=== PATIENT | male | born 2000 | race Two or more races ===

== ENCOUNTER 2022-04-16 12:26 | Day surgery (SDC) | payer OTHER ==
[2022-04-16 12:43] VITALS: BP 110/61; PULSE 64; RESP 16; TEMP 97.9
[2022-04-16] MEDS ORDERED: ALPRAZolam 0.5 MG TAB PO STA (12:47)
--- NOTE | 2022-04-16 14:08 | US ---
ULTRASOUND GUIDED LEFT NECK BIOPSY: CLINICAL HISTORY: Left neck lymph node FINDINGS: The procedure was explained to the patient. The risks, complications, benefits and alternatives were discussed and any questions were answered. Informed consent was obtained. Patient was placed supin e on the ultrasound table and prepped and draped in the usual sterile fashion. Utilizing a 18 gauge needle, three passes were made into the left neck lymph node. Patient was stable throughout the procedure. Pathology is pending. All elements of maximal barrier technique were utilized. IMPRESSION: 1. Successful ultrasound guided core biopsy left neck lymph node.
== END 2022-04-16 13:50 | disposition home or self-care (01) ==
LOC: RADPROMAIN 12:26
PROVIDERS: ATTEND Internal Medicine Hematology & Oncology
DX: R59.0 Localized enlarged lymph nodes (principal)
CPT/HCPCS: 38505; 76942; 88305; 88341; 88342

== ENCOUNTER 2022-05-01 06:20 | Day surgery (SDC) | payer OTHER ==
[~2022-05-01 06:20] MED LIST: LACTATED RINGERS 1,000 ML IV SCH; LIDOCAINE 1% (10MG/ML) FOR IV START INTRADERMA PRN
[2022-05-01 06:43] VITALS: RESP 16; TEMP 98.3
[2022-05-01] MEDS ORDERED: PROPOFOL 10 MG/ML 20 ML VIAL IV ONE (07:01)
[2022-05-01] MEDS ORDERED: LIDOCAINE 2% INJ 20 MG/ML SQ ONE (07:08)
[2022-05-01 08:17] VITALS: BP 108/59; PULSE 62
[2022-05-01 09:15] LABS: Basophils % (A) 1 %; Eosinophils # (A) 0.1 k/uL (0-0.7); Eosinophils % (A) 2 %; HCT 43.9 % (39.0-53.0); HGB 14.9 gm/dL (13.0-17.5); Lymphocytes # (A) 1.9 k/uL (1.0-4.8); Lymphocytes % (A) 39 %; MCH 30.6 pg (25.0-35.0); MCV 90.2 fL (80.0-100.0); Mean Platelet Volume 8.8; Monocytes # (A) 0.4 k/uL (0-1.0); Monocytes % (A) 7 %; Neutrophils # (A) 2.2 k/uL (1.3-7.7); Neutrophils % (A) 47 %; Platelet Count 261 k/uL (150-450); RBC 4.86 m/uL (4.30-5.90); RDW 12.6 % (11.5-15.5); Reticulocyte % 1.3 % (0.5-2.0); WBC 4.7 k/uL (3.8-10.6)
--- NOTE | 2022-05-01 19:37 | PCN ---
PROCEDURE NOTE PREOPERATIVE DIAGNOSIS: Hodgkin disease. POSTOPERATIVE DIAGNOSIS: Hodgkin disease. PROCEDURE: Bone marrow aspirate and biopsy. SITE: Right iliac crest. ANESTHESIA: Local with IV systemic sedation. DETAILS: Utilizing sterile technique, the skin overlying the iliac crest was prepared with Betadine and alcohol. After adequate sterile draping, local anesthesia with 1% lidocaine and systemic sedation, a size 11 4-inch [employer] needle was utilized to access the periosteum with ease. A total of 15 mL of aspirate as well as 3 cm bone core biopsies were obtained. The patient tolerated the procedure very well. There was no immediate procedure-related complication. Total blood loss less than 1 mL. Results pending. MMODL / IJN: [id number] /
== END 2022-05-01 08:28 | disposition home or self-care (01) ==
LOC: OR 06:20
PROVIDERS: ATTEND Internal Medicine Hematology & Oncology
DX: C81.91 Hodgkin lymphoma, unspecified, lymph nodes of head, face, and neck (principal); Z80.0 Family history of malignant neoplasm of digestive organs
CPT/HCPCS: 85025; 85045; 38222; J2001; J2704

== ENCOUNTER → 2022-05-04 | Outpatient (CLI) | payer OTHER ==
--- NOTE | 2022-05-04 11:40 | CA ---
Transthoracic Echo Report Name: James Watt Age: 21 Gender: M : 2000 Exam Date: 05/04/2022 10:46 Exam Location: [facility] Ht (in): 73 Wt (lb): 154 Ordering Physician: Narciso Rolle MD Attending/Referring Phys: Back Office Medical Assistant Meghana Flores RDCS Procedure CPT: Indications: Z01.818 Chemo Cardiac Hx: Technical Quality: Excellent Contrast 1: Total Dose (mL): Contrast 2: Total Dose (mL): MEASUREMENTS (Male / Female) Normal Values 2D ECHO LV Diastolic Diameter PLAX 4.8 cm 4.2 - 5.9 / 3.9 - 5.3 cm LV Systolic Diameter PLAX 2.9 cm IVS Diastolic Thickness 1.1 cm 0.6 - 1.0 / 0.6 - 0.9 cm LVPW Diastolic Thickness 1.0 cm 0.6 - 1.0 / 0.6 - 0.9 cm LV Relative Wall Thickness 0.4 RV Internal Dim ED PLAX 3.1 cm LA Systolic Diameter LX 3.2 cm 3.0 - 4.0 / 2.7 - 3.8 cm LA Volume 46.9 cm??? 18 - 58 / 22 - 52 cm??? M-MODE Aortic Root Diameter MM 3.0 cm MV E Point Septal Separation 0.6 cm AV Cusp Separation MM 2.5 cm DOPPLER AV Peak Velocity 115.4 cm/s AV Peak Gradient 5.3 mmHg MV Area PHT 2.8 cm??? Mitral E Point Velocity 106.8 cm/s Mitral A Point Velocity 64.8 cm/s Mitral E to A Ratio 1.6 MV Deceleration Time 275.7 ms MV E' Velocity 13.5 cm/s Mitral E to MV E' Ratio 7.9 TR Peak Velocity 242.3 cm/s TR Peak Gradient 23.5 mmHg Right Ventricular Systolic Press 28.5 mmHg FINDINGS Left Ventricle Left ventricular ejection fraction is estimated at 55-60 %. Left ventricular cavity size normal. Left ventricular wall thickness normal. Right Ventricle Normal right ventricular size and function. Right ventricular systolic pressure within normal limits. Right Atrium Normal right atrial size. Left Atrium Normal left atrial size. No evidence for an atrial septal defect. Mitral Valve Structurally normal mitral valve. No mitral stenosis, regurgitation or prolapse. Aortic Valve Trileaflet aortic valve. No aortic valve stenosis or regurgitation. Tricuspid Valve Trace to mild tricuspid regurgitation. Pulmonic Valve Mild pulmonic regurgitation. Pericardium Normal pericardium. No pericardial effusion. Aorta Normal size aortic root and proximal ascending aorta. CONCLUSIONS Normal LV size and systolic function. Trace mitral and mild tricuspid regurgitation. No pericardial effusion. No pulmonary hypertension Previewed by: Dr. Violetta Flores MD (Electronically Signed) Final Date: 04 May 2022 11:39
== END | disposition home or self-care (01) ==
LOC: RADECHMAIN 07:56
PROVIDERS: ATTEND Internal Medicine Hematology & Oncology
DX: Z01.818 Encounter for other preprocedural examination (principal); I07.1 Rheumatic tricuspid insufficiency
CPT/HCPCS: 93306; 78815; A9552

== ENCOUNTER 2022-06-09 19:09 | Emergency (ER) | payer OTHER ==
[2022-06-09 20:34] VITALS: RESP 18
--- NOTE | 2022-06-09 21:52 | XR ---
EXAMINATION TYPE: XR chest 2V DATE OF EXAM: 06/09/2022 9:46 PM COMPARISON: CT PET 05/04/2022 TECHNIQUE: XR chest 2V . CLINICAL INDICATION:Male, 21 years old with history of covid; history of lymphoma FINDINGS: Lungs/Pleura: There is no evidence of pleural effusion, focal consolidation, or pneumothorax. Pulmonary vascularity: Unremarkable. Heart/mediastinum: Cardiomediastinal silhouette is unremarkable. Musculoskeletal: No acute osseous pathology. Lines/Tubes: Osgbor-t-Ayhd projecting over the right hemithorax with distal tip at the cavoatrial junction. IMPRESSION: No acute cardiopulmonary disease/process.
--- NOTE | 2022-06-09 22:27 | ED ---
General Adult HPI - General Chief complaint: Fever Stated complaint: 100.8 Fever Time Seen by Provider: 06/09/22 21:12 Source: patient, RN notes reviewed, old records reviewed Mode of arrival: ambulatory Limitations: no limitations - History of Present Illness Initial comments: Patient is a 21-year-old male with past medical history remarkable for Hodgkin's lymphoma with a right chest Chemo-Port currently on chemotherapy with his last treatment on June 01 presents emergency Department complaining of febrile illness. Tested positive for Covid at home, and tested positive here in the department. Day 2 of symptoms. Patient's symptoms have been rhinorrhea, as well as a scratchy throat that has since resolved. Denies any cough. Denies chest pain. Denies nausea, vomiting, abdominal pain, diarrhea. Denies any ear pain. Endorses fatigue, generalized malaise. No other complaints at this time. Spoke with his oncologist, Dr. Munroe's office who instructed them to come here for further evaluation. Patient has been using Tylenol at home for fever control. T-max he states was 101F at home. Last took Tylenol at approximate 6 PM which was 4-1/2 hours ago. Presents for further evaluation at this time. Was not vaccinated for Covid 19. Unknown sick contact. - Related Data Home Medications Medication Instructions Recorded Confirmed No Known Home Medications 03/26/22 06/01/22 Allergies Allergy/AdvReac Type Severity Reaction Status Date / Time No Known Allergies Allergy Verified 06/09/22 20:34 Review of Systems ROS Statement: Those systems with pertinent positive or pertinent negative responses have been documented in the HPI. Review of Systems: CONST: Endorses fever EYES: Denies blurry vision ENT: Endorses nasal congestion C/V: Denies Chest pain RESP: Denies shortness of breath GI: Denies abdominal pain : Denies dysuria SKIN: Denies rash. MSK: Denies joint pain. NEURO: Denies headache ROS Other: All systems not noted in ROS Statement are negative. Past Medical History Past Medical History: Cancer Additional Past Medical History / Comment(s): palpable enlarged lymph node left side of neck, recent dx. Hodgkin's History of Any Multi-Drug Resistant Organisms: None Reported Past Surgical History: Tonsillectomy Past Anesthesia/Blood Transfusion Reactions: No Reported Reaction Past Psychological History: No Psychological Hx Reported Smoking Status: Never smoker Past Alcohol Use History: Occasional Past Drug Use History: Marijuana - Past Family History Father Additional Family Medical History / Comment(s): grandfather had throat CA General Exam - General Exam Comments Initial Comments: General: Appears in no acute distress. Currently afebrile. HEAD: Normal with no signs of head trauma. EYES: PERRLA, EOMI, conjunctiva normal, no discharge. ENT: Hearing grossly intact, normal oropharynx. No exudates or erythema of the posterior oropharynx. RESPIRATORY: Clear breath sounds bilaterally. No wheezes, rales, or rhonchi. No increased work of breathing. No hypoxia. C/V: Regular rate and rhythm. S1 and S2 auscultated, no edema, peripheral pulses 2+ and intact throughout. Right chest Chemo-Port. ABD: Abd is soft, nontender, nondistended EXT: Normal range of motion, no obvious deformity SKIN: No rashes or lesions observed on exposed skin. NEURO: Alert and oriented 4. Limitations: no limitations Course Vital Signs 06/09/22 06/09/22 20:29 23:10 Temperature 99.3 F Pulse Rate 99 103 H Respiratory 18 Rate Blood Pressure 116/70 O2 Sat by Pulse 99 100 Oximetry Medical Decision Making - Medical Decision Making Based on the patient's presentation and physical exam, patient presents over concern for febrile illness, COVID-19, in the setting of receiving current chemotherapy for Hodgkin's lymphoma. Vital signs otherwise within normal limits. Patient was not vaccinated. We will obtain basic laboratory studies in addition to chest x-ray. COVID-19 swab was positive or the patient was in triage. I evaluated the patient was placed in a room. Cultures of the patient's port as well as blood cultures will be obtained. Last chemo treatment was June 01, approximately one week ago. Patient's laboratory studies are remarkable for mild leukopenia of 2.5 but no neutropenia. Neutrophil number is 1.8, percent is 73. Patient is covid positive. Remainder the labs are unremarkable. Cultures were sent. Chest x- ray shows no acute cardio pulmonary process. Patient's vital signs remain within normal limits. Remains afebrile. No respiratory distress. No hypoxia. I did contact oncology on-call, Dr. Jason as he was the one who instructed the patient to come to the emergency department this evening. We reviewed the patient's laboratory studies. Were in agreement with the patient being discharged home. I wanted to ensure that paxlovid was safe for the patient with him being on chemotherapy and he was in agreement with the plan for a prescription for Paxlovid and follow up next week. I discussed this with the patient as well as the patient's mother. They were in agreement. Patient will be given a prescription for Paxlovid. Discussed obtaining a pulse ox. Discussed quarantine. Strict return precautions were discussed. I will provide the patient with a prescription for Paxlovid. I instructed the patient to follow up with their PCP in the next 1-3 days . I explained that the patient should return to the emergency department if they experience any worsening symptoms. Strict return precautions were discussed with the patient. The patient expressed understanding of these instructions. I answered all questions that the patient had. The patient was discharged home in good condition with their prescriptions and follow up information. - Lab Data Result diagrams: 06/09/22 23:04 06/09/22 23:04 Lab Results 06/09/22 06/09/22 06/09/22 Range/Units 20:36 23:04 23:04 WBC 2.5 L (3.8-10.6) k/uL RBC 4.78 (4.30-5.90) m/uL Hgb 13.8 (13.0-17.5) gm/dL Hct 42.0 (39.0-53.0) % MCV 87.8 (80.0-100.0) fL MCH 28.9 (25.0-35.0) pg MCHC 32.9 (31.0-37.0) g/dL RDW 11.7 (11.5-15.5) % Plt Count 210 (150-450) k/uL MPV 7.4 Neutrophils % 73 % Lymphocytes % 18 % Monocytes % 4 % Eosinophils % 0 % Basophils % 3 % Neutrophils # 1.8 (1.3-7.7) k/uL Lymphocytes # 0.4 L (1.0-4.8) k/uL Monocytes # 0.1 (0-1.0) k/uL Eosinophils # 0.0 (0-0.7) k/uL Basophils # 0.1 (0-0.2) k/uL Sodium 139 (137-145) mmol/L Potassium 4.1 (3.5-5.1) mmol/L Chloride 100 (98-107) mmol/L Carbon Dioxide 26 (22-30) mmol/L Anion Gap 13 mmol/L BUN 11 (9-20) mg/dL Creatinine 0.87 (0.66-1.25) mg/dL Est GFR (CKD-EPI)AfAm >90 (>60 ml/min/1.73 sqM) Est GFR (CKD-EPI)NonAf >90 (>60 ml/min/1.73 sqM) Glucose 93 (74-99) mg/dL Plasma Lactic Acid Jose Armando (0.7-2.0) mmol/L Calcium 9.0 (8.4-10.2) mg/dL Total Bilirubin 0.3 (0.2-1.3) mg/dL AST 29 (17-59) U/L ALT 28 (4-49) U/L Alkaline Phosphatase 72 (38-126) U/L Total Protein 7.1 (6.3-8.2) g/dL Albumin 4.6 (3.5-5.0) g/dL Coronavirus (PCR) Detected A (Not Detectd) 06/09/22 Range/Units 23:04 WBC (3.8-10.6) k/uL RBC (4.30-5.90) m/uL Hgb (13.0-17.5) gm/dL Hct (39.0-53.0) % MCV (80.0-100.0) fL MCH (25.0-35.0) pg MCHC (31.0-37.0) g/dL RDW (11.5-15.5) % Plt Count (150-450) k/uL MPV Neutrophils % % Lymphocytes % % Monocytes % % Eosinophils % % Basophils % % Neutrophils # (1.3-7.7) k/uL Lymphocytes # (1.0-4.8) k/uL Monocytes # (0-1.0) k/uL Eosinophils # (0-0.7) k/uL Basophils # (0-0.2) k/uL Sodium (137-145) mmol/L Potassium (3.5-5.1) mmol/L Chloride (98-107) mmol/L Carbon Dioxide (22-30) mmol/L Anion Gap mmol/L BUN (9-20) mg/dL Creatinine (0.66-1.25) mg/dL Est GFR (CKD-EPI)AfAm (>60 ml/min/1.73 sqM) Est GFR (CKD-EPI)NonAf (>60 ml/min/1.73 sqM) Glucose (74-99) mg/dL Plasma Lactic Acid Jose Armando 1.4 (0.7-2.0) mmol/L Calcium (8.4-10.2) mg/dL Total Bilirubin (0.2-1.3) mg/dL AST (17-59) U/L ALT (4-49) U/L Alkaline Phosphatase (38-126) U/L Total Protein (6.3-8.2) g/dL Albumin (3.5-5.0) g/dL Coronavirus (PCR) (Not Detectd) Disposition Clinical Impression: COVID-19, History of Hodgkin's lymphoma Narrative: currently undergoing chemotherapy. Disposition: HOME SELF-CARE Condition: Good Additional Instructions: You have covid 19. Obtain pulse oximeter to monitor oxygen levels. normal is greater than 95%. take paxlovid prescription to pharmacy and begin taking as soon as possible. Control fevers with motrin/tylenol. Attempt to quarentine until 2 days symptom free. Is patient prescribed a controlled substance at d/c from ED?: No Referrals: Bob De Santiago MD [Primary Care Provider] - 1-2 days Time of Disposition: 00:20
[2022-06-09 23:29] LABS: Basophils # (A) 0.1 k/uL (0-0.2); Basophils % (A) 3 %; Eosinophils % (A) 0 %; HGB 13.8 gm/dL (13.0-17.5); Lymphocytes # (A) 0.4 k/uL (1.0-4.8); Lymphocytes % (A) 18 %; MCH 28.9 pg (25.0-35.0); MCHC 32.9 g/dL (31.0-37.0); MCV 87.8 fL (80.0-100.0); Mean Platelet Volume 7.4; Monocytes # (A) 0.1 k/uL (0-1.0); Monocytes % (A) 4 %; Neutrophils # (A) 1.8 k/uL (1.3-7.7); Neutrophils % (A) 73 %; Platelet Count 210 k/uL (150-450); RBC 4.78 m/uL (4.30-5.90); RDW 11.7 % (11.5-15.5); WBC 2.5 k/uL (3.8-10.6)
[2022-06-09 23:32] LABS: ALT 28 U/L (4-49); AST 29 U/L (17-59); African American GFR (CKD) >90 (>60 ml/min/1.73 sqM); Albumin 4.6 g/dL (3.5-5.0); Alkaline Phosphatase 72 U/L (38-126); Anion Gap 13 mmol/L; Blood Urea Nitrogen 11 mg/dL (9-20); Carbon Dioxide 26 mmol/L (22-30); Chloride 100 mmol/L (98-107); Glucose 93 mg/dL (74-99); Non-African American GFR(CKD) >90 (>60 ml/min/1.73 sqM); Potassium 4.1 mmol/L (3.5-5.1); Sodium 139 mmol/L (137-145); Total Bilirubin 0.3 mg/dL (0.2-1.3); Total Protein 7.1 g/dL (6.3-8.2)
[2022-06-10 00:44] VITALS: BP 122/70; PULSE 110; TEMP 100.5
== END 2022-06-10 00:44 | disposition home or self-care (01) ==
LOC: EC 19:09
DX: U07.1 COVID-19 (principal); D72.819 Decreased white blood cell count, unspecified; Z85.71 Personal history of Hodgkin lymphoma
CPT/HCPCS: 36415; 71046; 80053; 83605; 85025; 87040; 87635; 99283

== ENCOUNTER → 2022-08-03 | Outpatient (CLI) | payer OTHER ==
--- NOTE | 2022-08-06 12:13 | PE ---
EXAMINATION TYPE: PET CT fusion skull to thigh DATE OF EXAM: 08/03/2022 CLINICAL INDICATION:Male, 22 years old with history of C18.91 Lymphoma; TECHNIQUE: Following the intravenous administration of 12.14 mCi of F-18 FDG, whole body images are performed from the skull base to the midthigh. Images are reviewed on the computer in the coronal, axial, and sagittal planes. Reconstructed rotating images are created on independent workstation and reviewed on the computer. A non-contrast CT is performed in conjunction with the PET scan. Glucose level 78 mg/dL COMPARISON: CT None, PET/CT 05/04/2022, FINDINGS: Mediastinal SUV mean is 1.2. Hepatic parenchyma SUV mean is 1.8. SKULL BASE AND NECK: Previous abnormal lymphadenopathy within the neck has resolved. No remaining shaikh spicious FDG activity within the neck at this time. Lymph nodes seen in prior are suboptimally assess ed given the paucity of fat and lack of IV contrast. Lymph nodes remain mildly enlarged measuring 12 mm in short axis. CHEST, MEDIASTINUM, AND HILAR REGION: No suspicious FDG activity. ABDOMEN AND PELVIS: No suspicious FDG activity. OSSEOUS STRUCTURES: No suspicious FDG activity. OTHER CT: Large stool burden throughout the colon. Right chest wall [id number] with tip terminatin g at the right atrium. IMPRESSION: Positive response to therapy without remaining suspicious FDG activity. There remains left-sided 12 m m in short axis lymph nodes which are suboptimally assessed without IV contrast and low-dose techniqu e.
== END | disposition home or self-care (01) ==
LOC: RADPETMAIN 10:09
PROVIDERS: ATTEND Internal Medicine Hematology & Oncology
DX: C85.90 Non-Hodgkin lymphoma, unspecified, unspecified site (principal)
CPT/HCPCS: 78815; A9552

== ENCOUNTER → 2023-05-24 | Outpatient (CLI) | payer OTHER ==
--- NOTE | 2023-05-26 21:20 | PE ---
EXAMINATION TYPE: PET CT fusion skull to thigh DATE OF EXAM: 05/24/2023 COMPARISON: No recent prior CT Prior PET/CT: 11/30/2022 HISTORY: Lymphoma TECHNIQUE: Following the intravenous administration of 12.89 mCi of F-18 FDG, whole body images are performed from the skull base to the midthigh. Images are reviewed on the computer in the coronal, a xial, and sagittal planes. Reconstructed rotating images are created on independent workstation and reviewed on the computer. A localization and attenuation correction CT is performed in conjunction with the PET scan. DLP: 359.10 mGycm SCAN: Subsequent Blood glucose: 90 mg/dL Average Mediastinum SUV: 1.53 Average Liver SUV: 2.21 FINDINGS: NECK: There is some mild increased uptake in the region of the posterior right tongue with an SUV of 4.12. Consider direct visualization. No suspicious uptake is otherwise evident. THORAX: No suspicious uptake ABDOMEN: No suspicious uptake PELVIS: No suspicious uptake. There appears to be some left hydronephrosis and hydroureter present OSSEOUS STRUCTURES: No abnormal uptake LOCALIZATION CT: Obvious prominence of the left ureter or renal collecting system is not evident on t he localization CT. COMPARISON: The 1.0 cm left neck lymph node remains present. No suspicious radiotracer uptake. IMPRESSION: 1. No suspicious uptake to suggest recurrent or residual lymphoma. 2. Findings appear stable from most recent PET/CT.
== END | disposition home or self-care (01) ==
LOC: RADPETMAIN 06:43
PROVIDERS: ATTEND Internal Medicine Hematology & Oncology
DX: C81.91 Hodgkin lymphoma, unspecified, lymph nodes of head, face, and neck (principal)
CPT/HCPCS: 78815; A9552